=== PATIENT | female | born 2000 | race Two or more races ===

== ENCOUNTER 2024-01-07 18:33 | Inpatient (IN) | payer OTHER ==
[~2024-01-07] VITALS: Ht 162.6 cm; Wt 95.7 kg
[2024-01-07] VITALS (10 sets, daily range): BP systolic 110–135; BP diastolic 58–87
[2024-01-07] MEDS ORDERED: RINGERS SOLUTION,LACTATED 1,000 ML IV SCH (19:15)
[2024-01-07] MEDS ORDERED: IBUprofen 400 MG TABLET PO PRN (19:30)
[2024-01-07 20:18] LABS: HEMATOCRIT 34.5 % (36.0-45.00); HEMOGLOBIN 11.2 g/dL (12.0-15.00); MEAN CELL VOLUME 80.5 fL (80.00-100.00); MEAN CORPUSCULAR HEMOGLOBIN 26.2 pg (27.00-32.0); MEAN CORPUSCULAR HGB CONC 32.6 g/dl (32.0-36.0); PLATELET COUNT 137 K/uL (150-450); RED BLOOD COUNT 4.28 M/uL (4.00-6.00); RED CELL DISTRIBUTION WIDTH 15.1 % (11.5-14.5)
[2024-01-07 20:25] LABS: INR < 0.93; PARTIAL THROMBOPLASTIN TIME 23.4 SECONDS (22.0-34.0); PROTHROMBIN TIME 10.2 SECONDS (9.0-11.5)
[2024-01-07 20:46] LABS: ALBUMIN 2.7 gm/dL (3.4-5.0); BILIRUBIN TOTAL 0.47 mg/dL (0.3-1.2); CALCIUM 9.4 mg/dL (8.5-10.1); CREATININE SERUM 0.57 mg/dL (0.55-1.02); GFR 130.31; GLOBULINA 3.9 G/DL (2.4-3.5); POTASSIUM 4.49 mEq/L (3.5-5.1); TOTAL PROTEIN 6.6 gm/dL (6.4-8.2)
[2024-01-07] MEDS ORDERED: ERYTHROMYCIN BASE OPHT 1GM EACH TUBE OP ONE (21:15)
[2024-01-07] MEDS ORDERED: OXYTOCIN 20 UNITS/1000ML RL PIGGYBAG IV SCH (21:15)
[2024-01-07] MEDS ORDERED: CHLORHEXIDINE GLUCONATE 120 ML BOTTLE TOP ONE (21:15)
[2024-01-08 00:48] VITALS: BP 114/70
[2024-01-08 06:29] LABS: HEMATOCRIT 32.4 % (36.0-45.00); HEMOGLOBIN 10.5 g/dL (12.0-15.00); MEAN CELL VOLUME 80.3 fL (80.00-100.00); MEAN CORPUSCULAR HEMOGLOBIN 26.1 pg (27.00-32.0); MEAN CORPUSCULAR HGB CONC 32.5 g/dl (32.0-36.0); PLATELET COUNT 149 K/uL (150-450); RED BLOOD COUNT 4.04 M/uL (4.00-6.00); RED CELL DISTRIBUTION WIDTH 14.8 % (11.5-14.5)
[2024-01-08 08:46] VITALS: BP 130/71
[2024-01-08] MEDS ORDERED: PNV,CALCIUM 72/IRON/FOLIC ACID 1 TAB TABLET PO SCH (09:00)
[2024-01-08] MEDS ORDERED: PRENATAL TABLE1 EAC1 PO (17:39)
[2024-01-08 18:00] VITALS: BP 117/73
[2024-01-09 00:56] VITALS: BP 122/73
[2024-01-09 08:00] VITALS: BP 124/88
[2024-01-09 17:08] VITALS: BP 120/80
== END 2024-01-09 17:51 | disposition home or self-care (01) | DRG 776 ==
LOC: OB/GYN 18:33 → LDR 18:33 → OB/GYN 20:20
PROVIDERS: Obstetrics & Gynecology; ADMIT Obstetrics & Gynecology; ATTEND Obstetrics & Gynecology
DX: Z39.0 Encounter for care and examination of mother immediately after delivery (principal)